=== PATIENT | female | born 1985 | race American Indian/Alaskan Native ===

== ENCOUNTER 2022-06-22 09:02 | Emergency (ER) | payer SELFPAY ==
[2022-06-22 10:00] VITALS: BP 147/96
== END 2022-06-22 18:52 | disposition left against medical advice (07) ==
LOC: ED 09:02
DX: R10.9 Unspecified abdominal pain (principal); R42 Dizziness and giddiness; Z53.21 Procedure and treatment not carried out due to patient leaving prior to being seen by health care provider